=== PATIENT | female | born 1980 | race Hispanic/Latino ===

== ENCOUNTER 2019-08-02 20:27 | Emergency (ER) | payer OTHER, SELFPAY ==
[2019-08-02] MEDS ORDERED: Acetaminophen 500 MG TAB ONE (21:11)
[2019-08-02] MEDS ORDERED: Ondansetron ODT 4 MG TAB ONE (21:11)
== END 2019-08-02 22:01 | disposition home or self-care (01) ==
LOC: ERS 20:27
DX: R51 Headache (principal); F41.9 Anxiety disorder, unspecified
CPT/HCPCS: 99283; Q0162